=== PATIENT | male | born 1945 | race Caucasian/White ===

== ENCOUNTER → 2016-11-09 | Outpatient (CLI) | payer MEDICARE ==
[~2016-11-09] MED LIST: ACET325T14 PO; AMIO400T4 PO; ASPI-515 PO; CARV3.122 PO; FINA5TAB4 PO; HEPA500024 SQ; INSU100V13 SQ; IRON15TA3 PO; LISI-167 PO; MORP5VIA IV; ONDA4SOL2 IV; ONDA4TAB10 PO; PANT40GR NG; SIMV5TAB5 PO; TEMA15CA6 PO
== END | disposition home or self-care (01) ==
LOC: CFH 15:53
PROVIDERS: ATTEND Nurse Practitioner
DX: N17.9 Acute kidney failure, unspecified (principal); I10 Essential (primary) hypertension; N40.1 Benign prostatic hyperplasia with lower urinary tract symptoms; D63.8 Anemia in other chronic diseases classified elsewhere; Z86.73 Personal history of transient ischemic attack (TIA), and cerebral infarction without residual deficits
CPT/HCPCS: 76770

== ENCOUNTER → 2017-06-13 | Outpatient (CLI) | payer MEDICARE ==
[~2017-06-13] MED LIST changes: +CHOL100012 PO; +LEVO100T5 PO; +SIMV10TA3 PO
== END | disposition home or self-care (01) ==
LOC: RAD 14:02
PROVIDERS: ATTEND Nurse Practitioner Family
DX: R05 Cough (principal)
CPT/HCPCS: 71020

== ENCOUNTER 2017-07-01 13:49 | Inpatient (IN) | payer MEDICARE ==
[~2017-07-01] VITALS: Ht 177.8 cm; Wt 90.2 kg
[~2017-07-01 13:49] MED LIST changes: -CHOL100012 PO; -LEVO100T5 PO; -SIMV10TA3 PO
[2017-07-01] MEDS ORDERED: LEVO100T5 PO (16:19)
[2017-07-01] MEDS ORDERED: SIMV10TA3 PO (16:19)
[2017-07-01] MEDS ORDERED: CHOL100012 PO (16:19)
[2017-07-01] MEDS ORDERED: SODIUM CHLORIDE 0.9% 1,000ML IVBOLUS ONE (16:30)
[2017-07-01] MEDS ORDERED: CEFTRIAXONE PMX 1GM/50ML 50 ML IVPB ONE (16:30)
[2017-07-01] MEDS ORDERED: SODIUM CHLORIDE FLUSH 10ML SYR IVF ONE (16:30)
[2017-07-01 16:50] LABS: HEMATOCRIT 41.5 % (39.2-51.8); HEMOGLOBIN 14.2 g/dL (13.7-18.0); WHITE BLOOD COUNT 23.4 x10^3/uL (3.4-10)
[2017-07-01] MEDS ORDERED: CEFTRIAXONE PMX 1GM/50ML 50 ML ONE (16:56)
[2017-07-01 17:04] LABS: ASPARTATE AMINO TRANSFERASE 21 U/L (15-37); BLOOD UREA NITROGEN 83 mg/dL (7-18)
[2017-07-01 17:10] LABS: IS PT STATUS REG ER OR PRE ER? YES
[2017-07-01 17:35] LABS: DIFF TOTAL CELLS COUNTED 100 CELL DIFF
[2017-07-01 17:37] LABS: VERIFY COUNTS? YES
[2017-07-01] MEDS ORDERED: hydrALAzine 20 MG/ML, 1ML IVPush PRN (19:30)
[2017-07-01] MEDS ORDERED: DIPHENHYDRAMINE 25 MG CAPSULE PO PRN (19:30)
[2017-07-01] MEDS ORDERED: ONDANSETRON 2MG/ML, 2ML IVPush PRN (19:30)
[2017-07-01] MEDS ORDERED: GUAIFENESIN/DM 200-20MG, 10ML UDC PO PRN (19:30)
[2017-07-01 20:05] VITALS: BP 143/83
[2017-07-01] MEDS: SODIUM CHLORIDE 0.9% 1,000 ML IV SCH (22:27)
[2017-07-01] MEDS: SIMVASTATIN 10 MG TABLET PO SCH (23:08)
[2017-07-01] MEDS: HEPARIN 5,000 UNITS/ML, 1ML SQ SCH (23:08)
[2017-07-02 01:38] VITALS: BP 96/59
[2017-07-02 04:59] LABS: HEMOGLOBIN 11.6 g/dL (13.7-18.0); WHITE BLOOD COUNT 16.2 x10^3/uL (3.4-10)
[2017-07-02 05:02] LABS: BLOOD UREA NITROGEN 84 mg/dL (7-18)
[2017-07-02 05:15] LABS: ASPARTATE AMINO TRANSFERASE 13 U/L (15-37)
[2017-07-02] MEDS: LEVOTHYROXINE 100 MCG TABLET PO SCH (06:09)
[2017-07-02] MEDS: SODIUM CHLORIDE 0.9% 1,000 ML IV SCH (06:10)
[2017-07-02 07:53] VITALS: BP 95/64
[2017-07-02] MEDS: FERROUS SULFATE 325 MG TABLET PO SCH (08:57)
[2017-07-02] MEDS: CHOLECALCIFEROL 1,000 UNIT TABLET PO SCH (08:57)
[2017-07-02] MEDS: SODIUM BICARBONATE 8.4% 75 MEQ in SODIUM CHLORIDE 0.45% 1,000 ML IV SCH ×3 (08:57→23:19)
[2017-07-02] MEDS: HEPARIN 5,000 UNITS/ML, 1ML SQ SCH ×2 (08:57→21:14)
[2017-07-02] MEDS: ASPIRIN 81 MG TABLET EC PO SCH (08:57)
[2017-07-02 13:50] VITALS: BP 106/65
[2017-07-02 19:26] VITALS: BP 119/65
[2017-07-02] MEDS: SIMVASTATIN 10 MG TABLET PO SCH (21:14)
[2017-07-03 01:43] VITALS: BP 100/63
[2017-07-03] MEDS: LEVOTHYROXINE 100 MCG TABLET PO SCH (05:13)
[2017-07-03 05:29] LABS: HEMATOCRIT 31.5 % (39.2-51.8); HEMOGLOBIN 10.7 g/dL (13.7-18.0); WHITE BLOOD COUNT 9.8 x10^3/uL (3.4-10)
[2017-07-03 05:48] LABS: ASPARTATE AMINO TRANSFERASE 16 U/L (15-37); BLOOD UREA NITROGEN 53 mg/dL (7-18)
[2017-07-03 08:32] VITALS: BP 117/63
[2017-07-03] MEDS: CHOLECALCIFEROL 1,000 UNIT TABLET PO SCH (09:00)
[2017-07-03] MEDS: FERROUS SULFATE 325 MG TABLET PO SCH (09:00)
[2017-07-03] MEDS: HEPARIN 5,000 UNITS/ML, 1ML SQ SCH ×2 (09:00→20:43)
[2017-07-03] MEDS: ASPIRIN 81 MG TABLET EC PO SCH (09:00)
[2017-07-03 13:35] VITALS: BP 130/78
[2017-07-03 19:20] VITALS: BP 121/78
[2017-07-03] MEDS: SIMVASTATIN 10 MG TABLET PO SCH (20:43)
[2017-07-04 01:38] VITALS: BP 117/71
[2017-07-04 04:48] LABS: ASPARTATE AMINO TRANSFERASE 14 U/L (15-37); BLOOD UREA NITROGEN 29 mg/dL (7-18)
[2017-07-04] MEDS: LEVOTHYROXINE 100 MCG TABLET PO SCH (05:52)
[2017-07-04 08:00] VITALS: BP 124/73
[2017-07-04] MEDS ORDERED: POTASSIUM PHOSPHATE 22 MEQ in SODIUM CHLORIDE 0.9% 500 ML IV ONE (08:00)
[2017-07-04] MEDS ORDERED: POTASSIUM PHOS 4.4 MEQ/ML IV ONE (08:00)
[2017-07-04] MEDS: ASPIRIN 81 MG TABLET EC PO SCH (09:00)
[2017-07-04] MEDS: HEPARIN 5,000 UNITS/ML, 1ML SQ SCH ×2 (09:00→21:00)
[2017-07-04] MEDS: CHOLECALCIFEROL 1,000 UNIT TABLET PO SCH (09:34)
[2017-07-04] MEDS: FERROUS SULFATE 325 MG TABLET PO SCH (09:35)
[2017-07-04] MEDS ORDERED: FENTANYL PF 100 MCG/2ML ONE (13:40)
[2017-07-04] MEDS ORDERED: NALOXONE 1 MG/ML, 2ML ONE (13:40)
[2017-07-04] MEDS ORDERED: MIDAZOLAM 1 MG/ML, 5ML ONE (13:40)
[2017-07-04] MEDS ORDERED: FLUMAZENIL 0.1 MG/1 ML, 5ML ONE (13:40)
[2017-07-04 14:55] VITALS: BP 112/63
[2017-07-04] MEDS: SIMVASTATIN 10 MG TABLET PO SCH (20:46)
[2017-07-04 21:02] VITALS: BP 136/83
[2017-07-05 01:00] VITALS: BP 118/80
[2017-07-05 05:16] LABS: BLOOD UREA NITROGEN 18 mg/dL (7-18)
[2017-07-05 05:19] LABS: HEMATOCRIT 32.4 % (39.2-51.8); HEMOGLOBIN 11.1 g/dL (13.7-18.0); WHITE BLOOD COUNT 10.1 x10^3/uL (3.4-10)
[2017-07-05] MEDS: LEVOTHYROXINE 100 MCG TABLET PO SCH (06:15)
[2017-07-05 08:54] VITALS: BP 129/72
[2017-07-05] MEDS: HEPARIN 5,000 UNITS/ML, 1ML SQ SCH ×2 (09:43→20:53)
[2017-07-05] MEDS: FERROUS SULFATE 325 MG TABLET PO SCH (09:43)
[2017-07-05] MEDS: CHOLECALCIFEROL 1,000 UNIT TABLET PO SCH (09:43)
[2017-07-05] MEDS: ASPIRIN 81 MG TABLET EC PO SCH (09:43)
[2017-07-05 14:55] VITALS: BP 125/76
[2017-07-05 19:23] VITALS: BP 129/74
[2017-07-05] MEDS: SIMVASTATIN 10 MG TABLET PO SCH (20:53)
[2017-07-06] MEDS: ACETAMINOPHEN 325 MG TABLET PO PRN (00:28)
[2017-07-06 01:23] VITALS: BP 126/69
[2017-07-06] MEDS: LEVOTHYROXINE 100 MCG TABLET PO SCH (06:13)
[2017-07-06 07:45] VITALS: BP 122/84
[2017-07-06] MEDS: HEPARIN 5,000 UNITS/ML, 1ML SQ SCH ×2 (09:03→21:23)
[2017-07-06] MEDS: CHOLECALCIFEROL 1,000 UNIT TABLET PO SCH (09:03)
[2017-07-06] MEDS: FERROUS SULFATE 325 MG TABLET PO SCH (09:03)
[2017-07-06] MEDS: ASPIRIN 81 MG TABLET EC PO SCH (09:03)
[2017-07-06 13:20] VITALS: BP 121/74
[2017-07-06 20:07] VITALS: BP 147/88
[2017-07-06] MEDS: SIMVASTATIN 10 MG TABLET PO SCH (21:23)
[2017-07-07 01:12] VITALS: BP 125/73
[2017-07-07 05:21] LABS: BLOOD UREA NITROGEN 15 mg/dL (7-18); HEMATOCRIT 32.6 % (39.2-51.8); WHITE BLOOD COUNT 10.4 x10^3/uL (3.4-10)
[2017-07-07] MEDS: LEVOTHYROXINE 100 MCG TABLET PO SCH (06:06)
[2017-07-07] MEDS: ASPIRIN 81 MG TABLET EC PO SCH (08:55)
[2017-07-07] MEDS: CHOLECALCIFEROL 1,000 UNIT TABLET PO SCH (08:55)
[2017-07-07] MEDS: FERROUS SULFATE 325 MG TABLET PO SCH (08:55)
[2017-07-07] MEDS: HEPARIN 5,000 UNITS/ML, 1ML SQ SCH ×2 (08:56→19:42)
[2017-07-07 09:08] VITALS: BP 115/62
[2017-07-07] MEDS ORDERED: MAGNESIUM SULFATE PMX 2GM/50ML 50 ML IV ONE (10:00)
[2017-07-07] MEDS ORDERED: POTASSIUM PHOSPHATE 22 MEQ in SODIUM CHLORIDE 0.9% 500 ML IV ONE (10:00)
[2017-07-07 15:04] VITALS: BP 126/77
[2017-07-07] MEDS: SIMVASTATIN 10 MG TABLET PO SCH (19:42)
[2017-07-07 19:50] VITALS: BP 115/77
[2017-07-08 01:50] VITALS: BP 109/69
[2017-07-08] MEDS: LEVOTHYROXINE 100 MCG TABLET PO SCH (05:10)
[2017-07-08 05:14] LABS: HEMATOCRIT 35.2 % (39.2-51.8); HEMOGLOBIN 11.9 g/dL (13.7-18.0); WHITE BLOOD COUNT 10.5 x10^3/uL (3.4-10)
[2017-07-08 05:24] LABS: BLOOD UREA NITROGEN 12 mg/dL (7-18)
[2017-07-08 08:02] VITALS: BP 131/81
[2017-07-08] MEDS: HEPARIN 5,000 UNITS/ML, 1ML SQ SCH ×2 (10:33→20:40)
[2017-07-08] MEDS: ASPIRIN 81 MG TABLET EC PO SCH (10:33)
[2017-07-08] MEDS: CHOLECALCIFEROL 1,000 UNIT TABLET PO SCH (10:33)
[2017-07-08] MEDS: FERROUS SULFATE 325 MG TABLET PO SCH (10:33)
[2017-07-08 13:50] VITALS: BP 111/67
[2017-07-08] MEDS ORDERED: ALBUTEROL SULFATE 2.5 MG/3 ML ONE (15:21)
[2017-07-08 19:12] VITALS: BP 123/81
[2017-07-08] MEDS: ALBUTEROL SULFATE 2.5 MG/3 ML NPPB SCH (19:40)
[2017-07-08] MEDS: SIMVASTATIN 10 MG TABLET PO SCH (20:39)
[2017-07-09 01:12] VITALS: BP 125/82
[2017-07-09] MEDS: LEVOTHYROXINE 100 MCG TABLET PO SCH (06:06)
[2017-07-09 07:27] VITALS: BP 115/74
[2017-07-09] MEDS: ALBUTEROL SULFATE 2.5 MG/3 ML NPPB SCH ×4 (08:00→18:31)
[2017-07-09] MEDS: FERROUS SULFATE 325 MG TABLET PO SCH (09:18)
[2017-07-09] MEDS: CHOLECALCIFEROL 1,000 UNIT TABLET PO SCH (09:18)
[2017-07-09] MEDS: ASPIRIN 81 MG TABLET EC PO SCH (09:18)
[2017-07-09] MEDS: HEPARIN 5,000 UNITS/ML, 1ML SQ SCH ×2 (09:19→20:46)
[2017-07-09 13:10] VITALS: BP 104/68
[2017-07-09 19:57] VITALS: BP 138/81
[2017-07-09] MEDS: SIMVASTATIN 10 MG TABLET PO SCH (20:45)
[2017-07-10 04:03] VITALS: BP 126/67
[2017-07-10] MEDS: ACETAMINOPHEN 325 MG TABLET PO PRN (04:10)
[2017-07-10] MEDS: LEVOTHYROXINE 100 MCG TABLET PO SCH (04:11)
[2017-07-10] MEDS: ALBUTEROL SULFATE 2.5 MG/3 ML NPPB SCH ×4 (07:07→20:00)
[2017-07-10 08:00] VITALS: BP_SYST 89; BP_SYST 97; BP_DIAS 53
[2017-07-10] MEDS: HEPARIN 5,000 UNITS/ML, 1ML SQ SCH ×2 (09:04→22:53)
[2017-07-10] MEDS: FERROUS SULFATE 325 MG TABLET PO SCH (09:04)
[2017-07-10] MEDS: ASPIRIN 81 MG TABLET EC PO SCH (09:04)
[2017-07-10] MEDS: CHOLECALCIFEROL 1,000 UNIT TABLET PO SCH (09:04)
[2017-07-10] MEDS ORDERED: CYANOCOBALAMIN 1,000 MCG/ML, 1ML IM ONE (10:00)
[2017-07-10 14:00] VITALS: BP 113/65
[2017-07-10 20:09] VITALS: BP 92/59
[2017-07-10] MEDS ORDERED: OMNIPAQUE 350 MG/ML, 75ML BOTTLE ONE (22:33)
[2017-07-10] MEDS: SIMVASTATIN 10 MG TABLET PO SCH (22:53)
[2017-07-11 01:29] VITALS: BP 98/63
[2017-07-11] MEDS: LEVOTHYROXINE 100 MCG TABLET PO SCH (06:32)
[2017-07-11 07:19] VITALS: BP 96/60
[2017-07-11] MEDS: FERROUS SULFATE 325 MG TABLET PO SCH (07:55)
[2017-07-11] MEDS: CYANOCOBALAMIN 1,000 MCG TABLET PO SCH (07:56)
[2017-07-11] MEDS: CHOLECALCIFEROL 1,000 UNIT TABLET PO SCH (07:56)
[2017-07-11] MEDS: ASPIRIN 81 MG TABLET EC PO SCH (08:01)
[2017-07-11] MEDS: HEPARIN 5,000 UNITS/ML, 1ML SQ SCH ×2 (08:01→19:59)
[2017-07-11] MEDS ORDERED: FENTANYL PF 100 MCG/2ML ONE (10:15)
[2017-07-11] MEDS ORDERED: MIDAZOLAM 1 MG/ML, 5ML ONE (10:16)
[2017-07-11] MEDS ORDERED: FLUMAZENIL 0.1 MG/1 ML, 5ML ONE ×2 (10:16→12:13)
[2017-07-11] MEDS ORDERED: NALOXONE 1 MG/ML, 2ML ONE ×2 (10:16→12:13)
[2017-07-11] MEDS: ACETAMINOPHEN 325 MG TABLET PO PRN ×2 (12:53→17:57)
[2017-07-11 13:30] VITALS: BP 89/57
[2017-07-11] MEDS: SODIUM CHLORIDE 0.9% 1,000 ML IV SCH ×2 (13:43→22:51)
[2017-07-11 14:22] LABS: BLOOD UREA NITROGEN 18 mg/dL (7-18)
[2017-07-11 14:25] LABS: ASPARTATE AMINO TRANSFERASE 27 U/L (15-37)
[2017-07-11 14:39] LABS: HEMATOCRIT 28.7 % (39.2-51.8); HEMOGLOBIN 9.9 g/dL (13.7-18.0); WHITE BLOOD COUNT 11.6 x10^3/uL (3.4-10)
[2017-07-11] MEDS: ALBUTEROL SULFATE 2.5 MG/3 ML NPPB SCH (15:50)
[2017-07-11] MEDS: DEXAMETHASONE 4 MG TABLET PO SCH (17:21)
[2017-07-11 18:30] VITALS: BP 92/44
[2017-07-11 19:50] VITALS: BP 105/55
[2017-07-11] MEDS: FAMOTIDINE 20 MG TABLET PO SCH (19:55)
[2017-07-11] MEDS: SIMVASTATIN 10 MG TABLET PO SCH (19:55)
[2017-07-11 23:50] VITALS: BP 103/56
[2017-07-12 04:10] VITALS: BP 109/65
[2017-07-12] MEDS: LEVOTHYROXINE 100 MCG TABLET PO SCH (05:40)
[2017-07-12] MEDS: SODIUM CHLORIDE 0.9% 1,000 ML IV SCH ×2 (06:27→17:02)
[2017-07-12 08:00] VITALS: BP 121/66
[2017-07-12] MEDS: DEXAMETHASONE 4 MG TABLET PO SCH ×3 (08:24→17:00)
[2017-07-12] MEDS: CHOLECALCIFEROL 1,000 UNIT TABLET PO SCH (08:24)
[2017-07-12] MEDS: FAMOTIDINE 20 MG TABLET PO SCH ×2 (08:25→20:35)
[2017-07-12] MEDS: FERROUS SULFATE 325 MG TABLET PO SCH (08:26)
[2017-07-12] MEDS: ASPIRIN 81 MG TABLET EC PO SCH (08:26)
[2017-07-12] MEDS: HEPARIN 5,000 UNITS/ML, 1ML SQ SCH ×2 (08:27→20:35)
[2017-07-12] MEDS: CYANOCOBALAMIN 1,000 MCG TABLET PO SCH (08:27)
[2017-07-12 12:51] VITALS: BP 118/66
[2017-07-12] MEDS: ACETAMINOPHEN 325 MG TABLET PO PRN (13:19)
[2017-07-12] MEDS: LORazepam 2 MG/ML, 1ML IVPush PRN ×2 (13:22→15:20)
[2017-07-12] MEDS ORDERED: ALBUTEROL SULFATE 2.5 MG/3 ML NPPB PRN (15:00)
[2017-07-12] MEDS ORDERED: GADOBUTROL 7.5 MMOL/7.5 ML PFS ONE (17:02)
[2017-07-12 19:30] VITALS: BP 110/55
[2017-07-12] MEDS: SIMVASTATIN 10 MG TABLET PO SCH (20:36)
[2017-07-13 00:48] VITALS: BP 126/68
[2017-07-13] MEDS: SODIUM CHLORIDE 0.9% 1,000 ML IV SCH ×3 (02:13→20:03)
[2017-07-13] MEDS: LEVOTHYROXINE 100 MCG TABLET PO SCH (05:54)
[2017-07-13 07:54] VITALS: BP 120/70
[2017-07-13] MEDS: CHOLECALCIFEROL 1,000 UNIT TABLET PO SCH (08:46)
[2017-07-13] MEDS: DEXAMETHASONE 4 MG TABLET PO SCH ×3 (08:46→17:14)
[2017-07-13] MEDS: ASPIRIN 81 MG TABLET EC PO SCH (08:46)
[2017-07-13] MEDS: FAMOTIDINE 20 MG TABLET PO SCH ×2 (08:46→20:03)
[2017-07-13] MEDS: CYANOCOBALAMIN 1,000 MCG TABLET PO SCH (08:46)
[2017-07-13] MEDS: FERROUS SULFATE 325 MG TABLET PO SCH (08:46)
[2017-07-13] MEDS: HEPARIN 5,000 UNITS/ML, 1ML SQ SCH ×2 (08:47→20:03)
[2017-07-13] MEDS: ACETAMINOPHEN 325 MG TABLET PO PRN ×2 (11:21→20:40)
[2017-07-13 14:10] VITALS: BP 132/75
[2017-07-13] MEDS: SIMVASTATIN 10 MG TABLET PO SCH (20:03)
[2017-07-13 20:31] VITALS: BP 143/76
[2017-07-14] MEDS: LORazepam 2 MG/ML, 1ML IVPush PRN (01:06)
[2017-07-14 01:53] VITALS: BP 149/85
[2017-07-14] MEDS: SODIUM CHLORIDE 0.9% 1,000 ML IV SCH ×3 (04:03→19:37)
[2017-07-14] MEDS: LEVOTHYROXINE 100 MCG TABLET PO SCH (05:43)
[2017-07-14 07:32] VITALS: BP 147/79
[2017-07-14] MEDS: HEPARIN 5,000 UNITS/ML, 1ML SQ SCH ×2 (08:28→19:40)
[2017-07-14] MEDS: CHOLECALCIFEROL 1,000 UNIT TABLET PO SCH (08:28)
[2017-07-14] MEDS: DEXAMETHASONE 4 MG TABLET PO SCH ×3 (08:28→17:03)
[2017-07-14] MEDS: CYANOCOBALAMIN 1,000 MCG TABLET PO SCH (08:28)
[2017-07-14] MEDS: FERROUS SULFATE 325 MG TABLET PO SCH (08:28)
[2017-07-14] MEDS: ASPIRIN 81 MG TABLET EC PO SCH (08:28)
[2017-07-14] MEDS: FAMOTIDINE 20 MG TABLET PO SCH ×2 (08:28→19:37)
[2017-07-14] MEDS: ACETAMINOPHEN 325 MG TABLET PO PRN (08:32)
[2017-07-14 14:33] VITALS: BP 154/79
[2017-07-14 19:10] VITALS: BP 154/83
[2017-07-14] MEDS: SIMVASTATIN 10 MG TABLET PO SCH (19:37)
[2017-07-15 01:00] VITALS: BP_SYST 144; BP_SYST 153; BP_DIAS 103; BP_DIAS 71
[2017-07-15] MEDS: SODIUM CHLORIDE 0.9% 1,000 ML IV SCH ×3 (05:01→22:26)
[2017-07-15] MEDS: LEVOTHYROXINE 100 MCG TABLET PO SCH (05:19)
[2017-07-15 06:45] VITALS: BP 139/65
[2017-07-15] MEDS: FERROUS SULFATE 325 MG TABLET PO SCH (07:58)
[2017-07-15] MEDS: FAMOTIDINE 20 MG TABLET PO SCH ×2 (07:58→19:50)
[2017-07-15] MEDS: HEPARIN 5,000 UNITS/ML, 1ML SQ SCH ×2 (07:58→19:55)
[2017-07-15] MEDS: DEXAMETHASONE 4 MG TABLET PO SCH ×3 (07:59→17:47)
[2017-07-15] MEDS: CYANOCOBALAMIN 1,000 MCG TABLET PO SCH (07:59)
[2017-07-15] MEDS: ASPIRIN 81 MG TABLET EC PO SCH (07:59)
[2017-07-15] MEDS: CHOLECALCIFEROL 1,000 UNIT TABLET PO SCH (07:59)
[2017-07-15 13:04] VITALS: BP 146/70
[2017-07-15] MEDS: ACETAMINOPHEN 325 MG TABLET PO PRN (13:44)
[2017-07-15] MEDS: SIMVASTATIN 10 MG TABLET PO SCH (19:51)
[2017-07-15 21:23] VITALS: BP 150/76
[2017-07-16 02:16] VITALS: BP 142/70
[2017-07-16] MEDS: LEVOTHYROXINE 100 MCG TABLET PO SCH (05:36)
[2017-07-16] MEDS: SODIUM CHLORIDE 0.9% 1,000 ML IV SCH ×2 (06:34→12:57)
[2017-07-16 07:07] VITALS: BP 175/91
[2017-07-16] MEDS: FERROUS SULFATE 325 MG TABLET PO SCH (08:02)
[2017-07-16] MEDS: DEXAMETHASONE 4 MG TABLET PO SCH ×3 (08:02→16:40)
[2017-07-16] MEDS: FAMOTIDINE 20 MG TABLET PO SCH ×2 (08:02→20:55)
[2017-07-16] MEDS: HEPARIN 5,000 UNITS/ML, 1ML SQ SCH ×2 (08:02→20:56)
[2017-07-16] MEDS: ASPIRIN 81 MG TABLET EC PO SCH (08:02)
[2017-07-16] MEDS: CYANOCOBALAMIN 1,000 MCG TABLET PO SCH (08:02)
[2017-07-16] MEDS: CHOLECALCIFEROL 1,000 UNIT TABLET PO SCH (08:16)
[2017-07-16] MEDS: ACETAMINOPHEN 325 MG TABLET PO PRN ×2 (10:27→21:39)
[2017-07-16] MEDS ORDERED: LORazepam 0.5MG TABLET PO PRN (12:30)
[2017-07-16 13:35] VITALS: BP 166/81
[2017-07-16 19:44] VITALS: BP 158/76
[2017-07-16] MEDS: SIMVASTATIN 10 MG TABLET PO SCH (20:55)
[2017-07-17] MEDS: SODIUM CHLORIDE 0.9% 1,000 ML IV SCH ×2 (00:48→08:16)
[2017-07-17 01:36] VITALS: BP 144/72
[2017-07-17] MEDS: LEVOTHYROXINE 100 MCG TABLET PO SCH (05:41)
[2017-07-17 07:24] VITALS: BP 146/89
[2017-07-17] MEDS: HEPARIN 5,000 UNITS/ML, 1ML SQ SCH (08:11)
[2017-07-17] MEDS: FAMOTIDINE 20 MG TABLET PO SCH (08:11)
[2017-07-17] MEDS: DEXAMETHASONE 4 MG TABLET PO SCH ×2 (08:11→13:16)
[2017-07-17] MEDS: ASPIRIN 81 MG TABLET EC PO SCH (08:11)
[2017-07-17] MEDS: CYANOCOBALAMIN 1,000 MCG TABLET PO SCH (08:11)
[2017-07-17] MEDS: FERROUS SULFATE 325 MG TABLET PO SCH (08:11)
[2017-07-17] MEDS: CHOLECALCIFEROL 1,000 UNIT TABLET PO SCH (08:11)
[2017-07-17] MEDS: ACETAMINOPHEN 325 MG TABLET PO PRN (10:14)
[2017-07-17] MEDS ORDERED: DEXA4TAB PO (11:24)
[2017-07-17] MEDS ORDERED: OXYC5CAP2 PO (13:29)
== END 2017-07-17 13:45 | DRG 40 ==
LOC: ED 15:53 → EDIP 18:14 → 3NW 19:50
PROVIDERS: ADMIT Hospitalist; ATTEND Family Medicine
PROC: 07BD3ZX Excision of Aortic Lymphatic, Percutaneous Approach, Diagnostic (ICD-10-PCS; principal; 2017-07-04)
PROC: 07BD3ZX Excision of Aortic Lymphatic, Percutaneous Approach, Diagnostic (ICD-10-PCS; 2017-07-11)
DX: G12.21 Amyotrophic lateral sclerosis (principal); N17.0 Acute kidney failure with tubular necrosis; J69.0 Pneumonitis due to inhalation of food and vomit; E43 Unspecified severe protein-calorie malnutrition; C79.51 Secondary malignant neoplasm of bone; E87.2 Acidosis; N13.30 Unspecified hydronephrosis; C77.8 Secondary and unspecified malignant neoplasm of lymph nodes of multiple regions; E87.1 Hypo-osmolality and hyponatremia; E46 Unspecified protein-calorie malnutrition; I69.351 Hemiplegia and hemiparesis following cerebral infarction affecting right dominant side; M48.54XA Collapsed vertebra, not elsewhere classified, thoracic region, initial encounter for fracture; K40.30 Unilateral inguinal hernia, with obstruction, without gangrene, not specified as recurrent; E83.39 Other disorders of phosphorus metabolism; I48.0 Paroxysmal atrial fibrillation; D64.9 Anemia, unspecified; E03.9 Hypothyroidism, unspecified; E78.5 Hyperlipidemia, unspecified; G70.9 Myoneural disorder, unspecified; I10 Essential (primary) hypertension; K59.00 Constipation, unspecified; K80.20 Calculus of gallbladder without cholecystitis without obstruction; N40.0 Benign prostatic hyperplasia without lower urinary tract symptoms; N49.2 Inflammatory disorders of scrotum; Z51.5 Encounter for palliative care; Z74.01 Bed confinement status; Z83.3 Family history of diabetes mellitus; Z99.3 Dependence on wheelchair; Z79.899 Other long term (current) drug therapy; Z68.28 Body mass index [BMI] 28.0-28.9, adult; Z66 Do not resuscitate; C67.9 Malignant neoplasm of bladder, unspecified; N32.0 Bladder-neck obstruction; R59.1 Generalized enlarged lymph nodes
CPT/HCPCS: 36415; 49180; 70551; 70553; 71010; 71260; 72156; 72157; 72158; 74176; 74230; 76770; 77012; 80048; 80053; 81001; 82306; 82607; 83519; 83605; 83735; 84100; 84443; 84484; 85025; 85610; 87040; 87086; 88184; 88185; 88305; 88341; 88342; 88360; 93005; 93306; 94640; 96365; 96366; 99156; 99157; A9585; J0696; J1644; J2250; J3010; J7613; Q9967; G0461; J2060; J2310; J3420; J3475; J7030; J7040